=== PATIENT | female | born 1975 | race Caucasian/White ===

== ENCOUNTER → 2018-01-26 | Outpatient (CLI) | payer OTHER | LOC: RAD 07:44 | DX: K82.8 Other specified diseases of gallbladder (principal); R10.11 Right upper quadrant pain ==

== ENCOUNTER 2018-02-13 22:03 | Emergency (ER) | payer OTHER ==
[~2018-02-13] VITALS: Ht 160 cm; Wt 59.1 kg
[2018-02-13 23:14] LABS: EOS # 0.5 (0.04-0.40); EOS % 6.5 % (1.0-5.0); HEMATOCRIT 36.9 % (37.0-47.0); HEMOGLOBIN 12.4 g/dL (12.5-16.0); LYMPH# 3.1 (1.50-4.00); MEAN CELL VOLUME 91 fl (78-100); MEAN CORPUSCULAR HEMOGLOBIN 31 pg (27-31); MEAN CORPUSCULAR HGB CONC 34 g/dL (33-37); MEAN PLATELET VOLUME 10.8 fl (7.4-10.4); MONO # 0.7 (0.20-0.80); NEU # 2.8 (1.40-6.50); PLATELET COUNT 330 K/mm3 (130-400); RED BLOOD COUNT 4.05 M/mm3 (4.10-5.30); WHITE BLOOD COUNT 7.1 K/mm3 (4.8-10.8)
[2018-02-13 23:15] LABS: ALBUMIN 3.9 g/dL (3.5-5.0); BUN/CREATININE RATIO 24.4 (6.0-26.0); CALCIUM 9.4 mg/dL (8.4-10.2); POTASSIUM 4.2 mmol/L (3.6-5.0); TOTAL BILIRUBIN 0.3 mg/dL (0.2-1.3); TOTAL PROTEIN 7.3 g/dL (6.3-8.2)
[2018-02-13 23:24] LABS: D-DIMER 0.57 mg/L FEU (0.15-0.50)
[2018-02-13 23:52] VITALS: BP 124/76
== END 2018-02-13 23:52 | disposition home or self-care (01) ==
LOC: ED 22:03
PROVIDERS: Family Medicine
DX: R07.89 Other chest pain (principal); M25.511 Pain in right shoulder; R10.816 Epigastric abdominal tenderness

== ENCOUNTER → 2018-06-01 | Outpatient (CLI) | payer OTHER | LOC: RAD 11:11 | DX: M25.511 Pain in right shoulder (principal) ==